=== PATIENT | male | born 1940 | race Asian ===

== ENCOUNTER 2017-02-21 18:53 | Inpatient (IN) | payer OTHER ==
[~2017-02-21] VITALS: Ht 162.6 cm; Wt 42.8 kg
[2017-02-21] MEDS ORDERED: SINEMET 25-1001 TAB PO (20:41)
[2017-02-21] MEDS ORDERED: SELEGILINE HCL PO (20:43)
[2017-02-21 21:43] LABS: BASOPHIL % 0.1 % (0-2); PLATELET COUNT 180 x10^3mcL (130-400)
[2017-02-21 21:45] LABS: microscopic required? NO
[2017-02-21 21:50] LABS: RED CELL DISTRIBUTION WIDTH 16.1 % (11.5-14.5)
[2017-02-21 21:52] LABS: ALKALINE PHOSPHATASE 310 U/L (46-116); ALT/SGPT 10 U/L (16-63); AST/SGOT 39 U/L (15-37); BILIRUBIN TOTAL 0.47 mg/dL (0.20-1.00); CALCIUM 9.1 mg/dL (8.5-10.1); CARBON DIOXIDE 30.6 mmol/L (21-32); CHLORIDE SERUM 114 mmol/L (98-107); CREATININE SERUM 1.6 mg/dL (0.7-1.3); GLUCOSE SERUM 123 mg/dL (74-106); POTASSIUM SERUM 4.1 mmol/L (3.5-5.1); SODIUM SERUM 157 mmol/L (136-145); TOTAL PROTEIN, SERUM 6.9 g/dL (6.4-8.2)
[2017-02-21 21:55] LABS: UA SPECIFIC GRAVITY 1.025 (1.005-1.035); urine erythrocyte NEGATIVE (NEGATIVE)
[2017-02-21 21:56] LABS: ALBUMIN 2.8 g/dL (3.4-5.0)
[2017-02-21 23:59] VITALS: BP 131/68
[2017-02-22] VITALS (7 sets, daily range): BP systolic 93–131; BP diastolic 47–72
[2017-02-22 02:05] LABS: MAGNESIUM 2.8 mg/dL (1.8-2.4); PHOSPHOROUS 4.5 mg/dL (2.5-4.9)
[2017-02-22 02:06] LABS: CHOLESTEROL/HDL RATIO 2.2
[2017-02-22 02:16] LABS: FREE T4 1.21 ng/dL (0.76-1.46); FREE THYROXINE INDEX 2.4 ug/dL (1.4-4.5); T4(THYROXINE) 6.6 ug/dL (4.7-13.3)
[2017-02-22 03:28] LABS: T3 TOTAL 0.64 ng/mL
[2017-02-22 11:12] LABS: BASOPHIL % 0.2 % (0-2); PLATELET COUNT 183 x10^3mcL (130-400)
[2017-02-22 12:00] LABS: CALCIUM 9.7 mg/dL (8.5-10.1); CARBON DIOXIDE 29.8 mmol/L (21-32); CHLORIDE SERUM 121 mmol/L (98-107); CREATININE SERUM 1.6 mg/dL (0.7-1.3); GLUCOSE SERUM 109 mg/dL (74-106); MAGNESIUM 2.6 mg/dL (1.8-2.4); PHOSPHOROUS 3.7 mg/dL (2.5-4.9); POTASSIUM SERUM 5.2 mmol/L (3.5-5.1)
[2017-02-22 12:03] LABS: SODIUM SERUM 161 mmol/L (136-145)
[2017-02-22 16:22] LABS: CARBON DIOXIDE 24.9 mmol/L (21-32); CHLORIDE SERUM 122 mmol/L (98-107); CREATININE SERUM 1.5 mg/dL (0.7-1.3); GLUCOSE SERUM 97 mg/dL (74-106); SODIUM SERUM 158 mmol/L (136-145)
[2017-02-22 19:25] LABS: AMPHETAMINE QUAL UR POSITIVE (NEG <=1000)
[2017-02-22 21:09] LABS: CALCIUM 8.9 mg/dL (8.5-10.1); CHLORIDE SERUM 123 mmol/L (98-107); CREATININE SERUM 1.5 mg/dL (0.7-1.3); GLUCOSE SERUM 120 mg/dL (74-106)
[2017-02-22 21:11] LABS: SODIUM SERUM 160 mmol/L (136-145)
[2017-02-23 03:15] LABS: CALCIUM 9.3 mg/dL (8.5-10.1); CARBON DIOXIDE 25.8 mmol/L (21-32); CHLORIDE SERUM 123 mmol/L (98-107); CREATININE SERUM 1.6 mg/dL (0.7-1.3); GLUCOSE SERUM 96 mg/dL (74-106); POTASSIUM SERUM 3.8 mmol/L (3.5-5.1)
[2017-02-23 03:16] LABS: SODIUM SERUM 161 mmol/L (136-145)
[2017-02-23 06:12] VITALS: BP 105/64
[2017-02-23 06:56] LABS: CARBON DIOXIDE 28.5 mmol/L (21-32); CHLORIDE SERUM 123 mmol/L (98-107); CREATININE SERUM 1.8 mg/dL (0.7-1.3); GLUCOSE SERUM 92 mg/dL (74-106); POTASSIUM SERUM 4.3 mmol/L (3.5-5.1)
[2017-02-23 07:27] LABS: SODIUM SERUM 163 mmol/L (136-145)
[2017-02-23 10:26] VITALS: BP 139/68
[2017-02-23 10:36] LABS: CALCIUM 9.1 mg/dL (8.5-10.1); CARBON DIOXIDE 27.4 mmol/L (21-32); CHLORIDE SERUM 123 mmol/L (98-107); CREATININE SERUM 1.8 mg/dL (0.7-1.3); GLUCOSE SERUM 110 mg/dL (74-106); POTASSIUM SERUM 4.6 mmol/L (3.5-5.1)
[2017-02-23 10:45] LABS: SODIUM SERUM 162 mmol/L (136-145)
[2017-02-23 13:29] VITALS: BP 131/69
[2017-02-23 14:05] LABS: CALCIUM 9.1 mg/dL (8.5-10.1); CARBON DIOXIDE 24.9 mmol/L (21-32); CHLORIDE SERUM 122 mmol/L (98-107); CREATININE SERUM 1.6 mg/dL (0.7-1.3); GLUCOSE SERUM 105 mg/dL (74-106); SODIUM SERUM 158 mmol/L (136-145)
[2017-02-23 16:56] VITALS: BP 137/78
[2017-02-23 17:25] LABS: CALCIUM 8.9 mg/dL (8.5-10.1); CARBON DIOXIDE 26.7 mmol/L (21-32); CHLORIDE SERUM 121 mmol/L (98-107); CREATININE SERUM 1.6 mg/dL (0.7-1.3); GLUCOSE SERUM 105 mg/dL (74-106); POTASSIUM SERUM 3.6 mmol/L (3.5-5.1); SODIUM SERUM 154 mmol/L (136-145)
[2017-02-23 19:13] LABS: CALCIUM 8.8 mg/dL (8.5-10.1); CARBON DIOXIDE 24.7 mmol/L (21-32); CHLORIDE SERUM 121 mmol/L (98-107); CREATININE SERUM 1.7 mg/dL (0.7-1.3); GLUCOSE SERUM 197 mg/dL (74-106); POTASSIUM SERUM 3.7 mmol/L (3.5-5.1); SODIUM SERUM 157 mmol/L (136-145)
[2017-02-23 19:40] VITALS: BP 114/64
[2017-02-23 23:01] LABS: CALCIUM 8.8 mg/dL (8.5-10.1); CARBON DIOXIDE 27.2 mmol/L (21-32); CHLORIDE SERUM 122 mmol/L (98-107); CREATININE SERUM 1.5 mg/dL (0.7-1.3); GLUCOSE SERUM 124 mg/dL (74-106); POTASSIUM SERUM 3.8 mmol/L (3.5-5.1); SODIUM SERUM 158 mmol/L (136-145)
[2017-02-24 01:44] LABS: CALCIUM 8.9 mg/dL (8.5-10.1); CARBON DIOXIDE 26.8 mmol/L (21-32); CHLORIDE SERUM 120 mmol/L (98-107); CREATININE SERUM 1.5 mg/dL (0.7-1.3); GLUCOSE SERUM 115 mg/dL (74-106); POTASSIUM SERUM 3.8 mmol/L (3.5-5.1); SODIUM SERUM 156 mmol/L (136-145)
[2017-02-24 04:13] LABS: BASOPHIL % 0.1 % (0-2)
[2017-02-24 04:17] LABS: CARBON DIOXIDE 26.8 mmol/L (21-32); CHLORIDE SERUM 122 mmol/L (98-107); CREATININE SERUM 1.4 mg/dL (0.7-1.3); GLUCOSE SERUM 117 mg/dL (74-106); MAGNESIUM 2.4 mg/dL (1.8-2.4); PHOSPHOROUS 2.9 mg/dL (2.5-4.9); POTASSIUM SERUM 3.3 mmol/L (3.5-5.1); SODIUM SERUM 157 mmol/L (136-145)
[2017-02-24 04:27] LABS: PLATELET COUNT 181 x10^3mcL (130-400)
[2017-02-24 05:55] VITALS: BP 139/80
[2017-02-24 08:36] LABS: CALCIUM 8.7 mg/dL (8.5-10.1); CARBON DIOXIDE 26.4 mmol/L (21-32); CHLORIDE SERUM 122 mmol/L (98-107); CREATININE SERUM 1.4 mg/dL (0.7-1.3); GLUCOSE SERUM 115 mg/dL (74-106); POTASSIUM SERUM 3.6 mmol/L (3.5-5.1); SODIUM SERUM 156 mmol/L (136-145)
[2017-02-24 09:25] VITALS: BP 111/63
[2017-02-24 10:50] LABS: CALCIUM 8.7 mg/dL (8.5-10.1); CARBON DIOXIDE 30.2 mmol/L (21-32); CHLORIDE SERUM 122 mmol/L (98-107); CREATININE SERUM 1.4 mg/dL (0.7-1.3); GLUCOSE SERUM 115 mg/dL (74-106); POTASSIUM SERUM 3.5 mmol/L (3.5-5.1); SODIUM SERUM 158 mmol/L (136-145)
[2017-02-24 12:50] VITALS: BP 120/54
[2017-02-24 14:35] LABS: CALCIUM 8.9 mg/dL (8.5-10.1); CARBON DIOXIDE 25.7 mmol/L (21-32); CHLORIDE SERUM 122 mmol/L (98-107); CREATININE SERUM 1.3 mg/dL (0.7-1.3); GLUCOSE SERUM 138 mg/dL (74-106); POTASSIUM SERUM 3.4 mmol/L (3.5-5.1); SODIUM SERUM 157 mmol/L (136-145)
[2017-02-24 17:23] VITALS: BP 104/61
[2017-02-24 17:43] LABS: CALCIUM 8.6 mg/dL (8.5-10.1); CARBON DIOXIDE 30.1 mmol/L (21-32); CHLORIDE SERUM 121 mmol/L (98-107); CREATININE SERUM 1.4 mg/dL (0.7-1.3); GLUCOSE SERUM 107 mg/dL (74-106); POTASSIUM SERUM 4.1 mmol/L (3.5-5.1); SODIUM SERUM 157 mmol/L (136-145)
[2017-02-24 19:13] LABS: CALCIUM 8.9 mg/dL (8.5-10.1); CARBON DIOXIDE 27.9 mmol/L (21-32); CHLORIDE SERUM 120 mmol/L (98-107); CREATININE SERUM 1.3 mg/dL (0.7-1.3); GLUCOSE SERUM 107 mg/dL (74-106); POTASSIUM SERUM 3.6 mmol/L (3.5-5.1); SODIUM SERUM 157 mmol/L (136-145)
[2017-02-24 21:56] LABS: CALCIUM 8.8 mg/dL (8.5-10.1); CARBON DIOXIDE 29.4 mmol/L (21-32); CHLORIDE SERUM 119 mmol/L (98-107); CREATININE SERUM 1.4 mg/dL (0.7-1.3); GLUCOSE SERUM 102 mg/dL (74-106); SODIUM SERUM 156 mmol/L (136-145)
[2017-02-24 22:05] VITALS: BP 133/84
[2017-02-25 05:37] VITALS: BP 141/86
[2017-02-25 07:51] LABS: MAGNESIUM 2.5 mg/dL (1.8-2.4); PHOSPHOROUS 2.7 mg/dL (2.5-4.9)
[2017-02-25 08:23] LABS: BASOPHIL % 0.1 % (0-2); PLATELET COUNT 175 x10^3mcL (130-400)
[2017-02-25 10:44] VITALS: BP 106/67
[2017-02-25 11:51] LABS: CALCIUM 8.8 mg/dL (8.5-10.1); CHLORIDE SERUM 116 mmol/L (98-107); CREATININE SERUM 1.2 mg/dL (0.7-1.3); GLUCOSE SERUM 120 mg/dL (74-106); POTASSIUM SERUM 3.6 mmol/L (3.5-5.1); SODIUM SERUM 155 mmol/L (136-145)
[2017-02-25 14:07] VITALS: BP 108/63
[2017-02-25 17:52] LABS: CALCIUM 8.4 mg/dL (8.5-10.1); CARBON DIOXIDE 29.5 mmol/L (21-32); CHLORIDE SERUM 113 mmol/L (98-107); CREATININE SERUM 1.1 mg/dL (0.7-1.3); GLUCOSE SERUM 113 mg/dL (74-106); POTASSIUM SERUM 3.5 mmol/L (3.5-5.1); SODIUM SERUM 150 mmol/L (136-145)
[2017-02-25 18:37] VITALS: BP 119/79
[2017-02-25 23:38] LABS: CALCIUM 8.5 mg/dL (8.5-10.1); CARBON DIOXIDE 25.7 mmol/L (21-32); CHLORIDE SERUM 113 mmol/L (98-107); GLUCOSE SERUM 113 mg/dL (74-106); POTASSIUM SERUM 3.6 mmol/L (3.5-5.1); SODIUM SERUM 147 mmol/L (136-145)
[2017-02-26 05:07] VITALS: BP 134/77
[2017-02-26 07:41] LABS: BASOPHIL % 0.2 % (0-2); PLATELET COUNT 149 x10^3mcL (130-400)
[2017-02-26 07:42] LABS: RED CELL DISTRIBUTION WIDTH 15.3 % (11.5-14.5)
[2017-02-26 07:58] LABS: CARBON DIOXIDE 28.6 mmol/L (21-32); CHLORIDE SERUM 110 mmol/L (98-107); GLUCOSE SERUM 100 mg/dL (74-106); MAGNESIUM 2.3 mg/dL (1.8-2.4); PHOSPHOROUS 3.1 mg/dL (2.5-4.9); POTASSIUM SERUM 3.5 mmol/L (3.5-5.1); SODIUM SERUM 145 mmol/L (136-145)
[2017-02-26 10:41] VITALS: BP 132/78
[2017-02-26 12:40] LABS: CALCIUM 8.5 mg/dL (8.5-10.1); CARBON DIOXIDE 28.8 mmol/L (21-32); CHLORIDE SERUM 109 mmol/L (98-107); CREATININE SERUM 1.1 mg/dL (0.7-1.3); POTASSIUM SERUM 4.1 mmol/L (3.5-5.1); SODIUM SERUM 144 mmol/L (136-145)
[2017-02-26 12:51] LABS: GLUCOSE SERUM 55 mg/dL (74-106)
[2017-02-26 13:04] VITALS: BP 111/71
[2017-02-26 17:40] VITALS: BP 111/71
[2017-02-26 17:41] VITALS: BP 136/75
== END 2017-02-26 18:30 | disposition home or self-care (01) | DRG 177 ==
LOC: ED 18:53 → DU 22:46 → MU 02-26 15:24
PROVIDERS: Emergency Medicine; Family Medicine; Student in an Organized Health Care Education/Training Program
DX: J69.0 Pneumonitis due to inhalation of food and vomit (principal); G93.41 Metabolic encephalopathy; E43 Unspecified severe protein-calorie malnutrition; N17.0 Acute kidney failure with tubular necrosis; E87.0 Hyperosmolality and hypernatremia; R47.01 Aphasia; Z68.1 Body mass index [BMI] 19.9 or less, adult; R91.1 Solitary pulmonary nodule; E86.0 Dehydration; G20 Parkinson's disease; N18.3 Chronic kidney disease, stage 3 (moderate); E83.41 Hypermagnesemia; E87.6 Hypokalemia; D64.9 Anemia, unspecified; Z85.028 Personal history of other malignant neoplasm of stomach
CPT/HCPCS: 82962; 83880; 84439; 87804; 92610-GN; J1200; J1956; J3480; J3490; J7030; J7060; J7070; J7620; Q0092